=== PATIENT | male | born 1945 | race Caucasian/White ===

== ENCOUNTER 2016-12-16 11:32 | Day surgery (SDC) | payer MEDICARE ==
[2016-12-16] MEDS ORDERED: LIDOCAINE 2% MDV (20MG/ML) 20ML VIAL IV ONE (14:00)
[2016-12-16] MEDS ORDERED: MIDAZOLAM HCL 2MG/2ML VIAL IV ONE (14:00)
[2016-12-16] MEDS ORDERED: PROPOFOL 10 MG/ML VIAL IV ONE (14:00)
== END 2016-12-16 13:05 | disposition home or self-care (01) ==
LOC: HOP 11:32
PROVIDERS: ATTEND Internal Medicine Gastroenterology
DX: D12.2 Benign neoplasm of ascending colon (principal); D12.3 Benign neoplasm of transverse colon; I10 Essential (primary) hypertension; E78.00 Pure hypercholesterolemia, unspecified

== ENCOUNTER 2017-01-13 09:56 | Day surgery (SDC) | payer MEDICARE ==
--- NOTE | 2016-12-17 15:51 | Operative Note ---
DATE OF SURGERY: 12/16/2016 REFERRING PROVIDER: Carlos Simpson DO PREOPERATIVE DIAGNOSIS: Hemoccult-positive stool. POSTOPERATIVE DIAGNOSIS: Includes ascending and transverse colon polyps status post cold forceps removal. Otherwise normal exam. OPERATION: COLONOSCOPY with cold forceps polypectomy x 2. Preparation Quality: Good. Estimated Blood Loss: Minimal. Samples Obtained: Include ascending and transverse polyps. PROCEDURE: After informed consent was obtained, the patient was placed in the left lateral decubitus position in the endoscopy suite, sedated and monitored by the Department of Anesthesia. Digital rectal exam was unremarkable. A well-lubricated PCF-180 colonoscope was inserted into the rectum and advanced to the cecum. The preparation quality was good. The cecum, ileocecal valve and appendiceal orifice were unremarkable. The ileocecal valve itself was cannulated, revealing a normal appearing distal terminal ileum. The ascending colon revealed a diminutive polyp removed with a cold forceps. The transverse colon also revealed a diminutive polyp removed with a cold forceps. The remainder of the ascending colon, transverse colon, descending colon, sigmoid colon, and rectum are unremarkable. The rectum was unremarkable in forward and in J-turn views. The endoscope was straightened, the rectal ampulla deflated and the endoscope was removed. RECOMMENDATIONS: Will await results of tissue histology, but suspect the patient will require repeat exam in 5 years. In addition, I could not appreciate any lesion that would readily explain a heme-positive result, and therefore the patient will be scheduled for an upper endoscopy. As always, thank you for allowing me to participate in the health care of your patients. Corey Barriga DO CC: Carlos Simpson DO [facility]
[2017-01-13] MEDS ORDERED: FENTANYL PF 100MCG/2ML VIAL IV ONE (14:00)
[2017-01-13] MEDS ORDERED: LIDOCAINE 2% MDV (20MG/ML) 20ML VIAL IV ONE (14:00)
[2017-01-13] MEDS ORDERED: PROPOFOL 10 MG/ML VIAL IV ONE (14:00)
--- NOTE | 2017-01-17 07:20 | Operative Note ---
DATE OF SURGERY: OPERATION: ESOPHAGOGASTRODUODENOSCOPY with biopsy. PREOPERATIVE DIAGNOSIS: Hemoccult-positive stools of unclear origin. POSTOPERATIVE DIAGNOSIS: GERD, rule out short-segment Wiley's. PROCEDURE: After informed consent was obtained from the patient, he was placed in the left lateral decubitus position in the endoscopy suite, sedated and monitored by the department of anesthesia. A well-lubricated SXK108 gastroscope was placed in the posterior oropharynx and under direct visualization passed to the proximal esophagus. The endoscope was advanced through the proximal, mid, and distal esophagus. The GE junction was slightly irregular. No ulcers, erosions, strictures, varices, or mass lesions were seen. The gastric body and antrum were inspected and revealed no abnormalities. The pylorus, duodenal bulb, and sweep were unremarkable. J-turn views of the proximal stomach revealed some bilious secretions but these were rinsed and aspirated. No underlying abnormalities were readily identified. No bleeding lesions were noted. The endoscope was straightened. The irregular Z line was biopsied multiple times. No excessive bleeding was noted. The endoscope was removed from the patient with no new findings noted. RECOMMENDATIONS: At this point it is unclear the source of his heme positivity but the we will await the results of the GE junction biopsies. In particular, question whether there could be a short-segment Wiley's issue. As always, thank you for allowing me to participate in the healthcare of your patients. Corey Barriga DO CC: Dr. Calvin TRUJILLO
== END 2017-01-13 12:35 | disposition home or self-care (01) ==
LOC: HOP 09:56
PROVIDERS: ATTEND Internal Medicine Gastroenterology
DX: K21.9 Gastro-esophageal reflux disease without esophagitis (principal); K31.89 Other diseases of stomach and duodenum; E78.00 Pure hypercholesterolemia, unspecified; I10 Essential (primary) hypertension
CPT/HCPCS: 43239; 00740; J3010

== ENCOUNTER 2018-09-05 12:38 | Day surgery (SDC) | payer MEDICARE ==
[~2018-09-05 12:38] MED LIST: ACETAMINOPHEN 1,000 MG/100 ML BTL IV ONE; CEFAZOLIN 2 Gram 2 GM/50 ML BAG IVPB ONE
[2018-09-05] MEDS ORDERED: ONDANSETRON HCL IV 4 MG/2 ML VIAL IVP ONE (12:39)
[2018-09-05] MEDS ORDERED: GLYCOPYRROLATE 0.2 MG/ML ML IV ONE (12:39)
[2018-09-05] MEDS ORDERED: NALOXONE 0.4 MG/1 ML VIAL IVP ONE (12:39)
[2018-09-05] MEDS ORDERED: LIDOCAINE 2% MDV (20MG/ML) 20ML VIAL IV ONE (12:39)
[2018-09-05] MEDS ORDERED: PROPOFOL 10 MG/ML VIAL IV ONE (12:39)
[2018-09-05] MEDS ORDERED: SEVOFLURANE 250 ML INH ONE (12:39)
[2018-09-05] MEDS ORDERED: FENTANYL PF 100MCG/2ML VIAL IV ONE (12:39)
--- NOTE | 2018-09-06 09:41 | Operative Note ---
DATE OF SURGERY: 09/05/2018 PREOPERATIVE DIAGNOSIS: Bladder cancer. POSTOPERATIVE DIAGNOSIS: Bladder cancer. OPERATION: Cystoscopy, transurethral resection of the bladder tumor. Anesthesia: General. Surgeon: Jose Angel Arroyo MD Chair Pad Maker: None. Indications: A 73-year-old male with a history of known bladder cancer who was found to have some recurrent tumor on recent office cystoscopy. As such, he presents for further investigation and management today. PROCEDURE: Preop informed consent was obtained. Antibiotics were given. Sedation was administered. The patient was brought to the cystoscopy suite, given LMA anesthetic, carefully placed in lithotomy position with genitalia prepped and draped sterilely. Cystoscopy was performed. The urethra appears unremarkable. The prostate appears rather small and minimally obstructive. The bladder was entered and inspected carefully. There is a diverticulum at the left posterior wall. There are several small papillary tumors seen in the middle of the trigone and off to the right side of the trigone as well. The tumors are small. Using the resectoscope, the larger papillary tumor was easily removed, passed off the field for pathology analysis, and the remaining smaller tumors and the tumor resection bed were carefully cauterized with the resectoscope to obtain excellent hemostasis and tumor destruction. There was no evidence of any injury to either ureter or any evidence of bladder perforation. The bladder was then irrigated out several times. There was no bleeding. The scope was removed. The patient was awakened and transferred to recovery in stable condition. PLAN: The patient will be following up in the [facility] on 09/21/2018 to review pathology results. CC: DO RONNIE Loaiza
== END 2018-09-05 15:25 | disposition home or self-care (01) ==
LOC: SUR 12:38
PROVIDERS: ATTEND Urology
DX: C67.0 Malignant neoplasm of trigone of bladder (principal); I10 Essential (primary) hypertension; E78.00 Pure hypercholesterolemia, unspecified
CPT/HCPCS: J2310; J2405

== ENCOUNTER 2019-06-20 21:44 | Observation (INO) | payer MEDICARE ==
[2019-06-20 22:10] LABS: BASO % 0.4 % (0-6); GRAN % 69.8 % (47-80); HEMATOCRIT 40.4 % (42.0-52.0); HEMOGLOBIN 13.9 gm/dl (14.0-18.0); LYMPH % 25.4 % (16-45); MEAN CELL VOLUME 84.2 fl (81-97); MEAN CORPUSCULAR HGB CONC 34.4 g/dl (32-36); MEAN PLATELET VOLUME 9.7 fl (7.4-10.4); MONO % 4.4 % (0-9); PLATELET COUNT 123 K/uL (130-400); RED CELL DISTRIBUTION WIDTH 13.5 % (11.5-14.5); WHITE BLOOD COUNT W/O DIFF 2.7 K/uL (4.2-12.2)
[2019-06-20 22:11] LABS: MEAN CORPUSCULAR HEMOGLOBIN 28.9 pg (27-33)
--- NOTE | 2019-06-20 22:17 | Emergency Department Record ---
History of Present Illness - General Chief Complaint: Fever Stated Complaint: SEIZURE Time Seen by Provider: 06/20/19 22:14 Source: Patient Mode of Arrival: Ambulatory Limitations: No limitations - History of Present Illness Initial Comments: pt came in w severe rigors and 103.2 temp without other symptoms. he has been being treated for cellulitis on his abdomen. he has a hx of melanoma but is not surrently on chemo MD Complaint: Fever, Weakness Onset/Timin -: Hour(s) Maximum Temperature: 103.2 F Temperature Source: Oral Associated Symptoms: Chills, Rigors - Related Data Allergies Allergy/AdvReac Type Severity Reaction Status Date / Time No Known Drug Allergies Allergy Unverified 04/27/18 11:47 Travel Screening - Travel/Exposure Within Last 30 Days Have you traveled within the last 30 days?: No - Travel Symptoms Symptom Screening: Fever (GT 100.4) Review of Systems Reviewed: No additional complaints except as noted below Constitutional: Reports: As per HPI, Chills, Fever, Weakness. Denies: Malaise, Night sweats, Weight change Eyes: Reports: As per HPI. Denies: Eye discharge, Eye pain, Photophobia, Vision change ENT: Reports: As per HPI. Denies: Congestion, Dental pain, Ear pain, Epistaxis, Hearing loss, Throat pain Respiratory: Reports: As per HPI. Denies: Cough, Dyspnea, Hemoptysis, Stridor, Wheezes Cardiovascular: Reports: As per HPI. Denies: Arrhythmia, Chest pain, Dyspnea on exertion, Edema, Murmurs, Orthopnea, Palpitations, Paroxysmal nocturnal dyspnea, Rheumatic Fever, Syncope Endocrine: Reports: As per HPI. Denies: Fatigue, Heat or cold intolerance, Polydipsia, Polyuria Gastrointestinal: Reports: As per HPI. Denies: Abdominal pain, Constipation, Diarrhea, Hematemesis, Hematochezia, Melena, Nausea, Vomiting Genitourinary: Reports: As per HPI. Denies: Dysuria, Frequency, Hematuria, Incontinence, Retention, Testicular pain, Testicular mass, Urgency Musculoskeletal: Reports: As per HPI. Denies: Arthralgia, Back pain, Gout, Joint swelling, Myalgia, Neck pain Skin: Reports: As per HPI. Denies: Bruising, Change in color, Change in hair/nails, Lesions, Pruritus, Rash Neurological: Reports: As per HPI. Denies: Abnormal gait, Confusion, Headache, Numbness, Paresthesias, Seizure, Tingling, Tremors, Vertigo, Weakness Psychiatric: Reports: As per HPI. Denies: Anxiety, Auditory hallucinations, Depression, Homicidal thoughts, Suicidal thoughts, Visual hallucinations Hematological/Lymphatic: Reports: As per HPI. Denies: Anemia, Blood Clots, Easy bleeding, Easy bruising, Swollen glands Past Medical History - SOCIAL HISTORY Smoking Status: Former smoker Alcohol Use: Occasional Drug Use: None - RESPIRATORY Hx Respiratory Disorders: Yes - CARDIOVASCULAR Hx Cardio Disorders: Yes Hx Heart Attack: Yes (mild silent showed up in EKG) Hx Hypertension: Yes (on meds good control) Hx Irregular Heartbeat: Yes (bradycardic) Comment:: high cholesterol - NEURO Hx Neuro Disorders: No - GI Hx GI Disorders: Yes Hx Reflux: Yes - Hx Genitourinary Disorders: Yes Hx Bladder Problem: Yes (cancer) - ENDOCRINE Hx Endocrine Disorders: No - MUSCULOSKELETAL Hx Musculoskeletal Disorders: Yes Hx Arthritis: Yes - PSYCH Hx Psych Problems: No - HEMATOLOGY/ONCOLOGY Hx Hematology/Oncology Disorders: Yes Hx Cancer: Yes (bladder & melanoma) Hx Chemotherapy: No Hx Radiation Therapy: No Family Medical History Any Significant Family History?: Yes Hx Heart Disease: Mother, Brother/Sister Physical Exam - General General Appearance: Alert, Oriented x3, Cooperative, Moderate distress - Head Head exam: Normal inspection - Eye Eye exam: Normal appearance, PERRL, EOMI Pupils: Normal accommodation - ENT ENT exam: Normal exam, Mucous membranes moist, Normal external ear exam, Normal orophraynx Ear exam: Normal external inspection. negative: External canal tenderness Nasal Exam: Normal inspection. negative: Discharge, Sinus tenderness Mouth exam: Normal external inspection, Tongue normal Teeth exam: Normal inspection. negative: Dental caries Throat exam: Normal inspection. negative: Tonsillar erythema, Tonsillar exudate - Neck Neck exam: Normal inspection, Full ROM. negative: Tenderness - Respiratory Respiratory exam: Normal lung sounds bilaterally. negative: Respiratory distress - Cardiovascular Cardiovascular Exam: Regular rate, Normal rhythm, Normal heart sounds - GI/Abdominal GI/Abdominal exam: Soft, Normal bowel sounds, Tenderness - Rectal Rectal exam: Deferred - exam: Deferred - Extremities Extremities exam: Normal inspection, Full ROM, Normal capillary refill. negative: Tenderness - Back Back exam: Reports: Normal inspection, Full ROM. Denies: Muscle spasm, Rash noted, Tenderness - Neurological Neurological exam: Alert, CN II-XII intact, Normal gait, Oriented X3 - Psychiatric Psychiatric exam: Normal affect, Normal mood - Skin Skin exam: Dry, Erythema, Intact, Normal color, Rash, Warm Type of lesion: Rash Distribution of rash: Abdomen Description of rash: Confluent, Erythematous, Vesicular Course Vital Signs 06/20/19 21:58 Temperature 103.2 F H Pulse Rate 98 H Respiratory 22 Rate Blood Pressure 212/88 Pulse Ox 98 - Reevaluation(s) Reevaluation #1: 06/21/19 01:11 pt feels better. temp is down. ct shows mild colitis. cxr neg. wbcs are low. not a clear etiolgy of hyperpyrexia and rigors. pt does have cellulitis on abdomen Medical Decision Making - Lab Data Result diagrams: 06/20/19 20:10 06/20/19 20:10 Lab Results 06/20/19 06/20/19 Range/Units 20:10 20:10 WBC 2.7 L (4.2-12.2) K/uL RBC 4.80 (4.40-5.70) M/uL Hgb 13.9 L (14.0-18.0) gm/dl Hct 40.4 L (42.0-52.0) % MCV 84.2 (81-97) fl MCH 28.9 (27-33) pg MCHC 34.4 (32-36) g/dl RDW 13.5 (11.5-14.5) % Plt Count 123 L (130-400) K/uL MPV 9.7 (7.4-10.4) fl Gran % 69.8 (47-80) % Lymphocytes % 25.4 (16-45) % Monocytes % 4.4 (0-9) % Eosinophils % 0.0 (0-6) % Basophils % 0.4 (0-6) % Absolute Neutrophils 1.90 Sodium Cancelled Potassium Cancelled Chloride Cancelled Carbon Dioxide Cancelled Anion Gap Cancelled BUN Cancelled Creatinine Cancelled Estimated GFR Cancelled Random Glucose Cancelled Calcium Cancelled Total Bilirubin Cancelled AST Cancelled ALT Cancelled Alkaline Phosphatase Cancelled Total Protein Cancelled Albumin Cancelled Globulin Cancelled Albumin/Globulin Ratio Cancelled Disposition Disposition: Admit Clinical Impression: Hyperpyrexia Leukopenia Qualifiers: Leukopenia type: unspecified Qualified Code(s): D72.819 - Decreased white blood cell count, unspecified Disposition: Still a Patient at [facility] Decision to Admit: Admit from ER Decision to Admit Date: 06/21/19 Decision to Admit Time: 01:05 Forms: Patient Portal Access Quality - Quality Measures Quality Measures: N/A - Blood Pressure Screening Does Patient Have Any of the Following: Active Dx of HTN Blood Pressure Classification: Pre-Hypertensive BP Reading Systolic Measurement: 212 Diastolic Measurement: 88 Screening for High Blood Pressure: Patient Exclusion, Hx of HTN [[id number]]
[2019-06-20 22:21] LABS: BLOOD UREA NITROGEN 24 mg/dL (8-23); CREATININE 1.1 mg/dL (0.7-1.2); EST GLOMERULAR FILTRATION RATE > 60 mL/min
[2019-06-20 22:22] LABS: TOTAL PROTEIN 7.2 g/dL (6.6-8.7)
[2019-06-20] MEDS ORDERED: 0.9 % SODIUM CHLORIDE 1,000 ML BAG IV ONE (22:23)
[2019-06-20 22:24] LABS: GLUCOSE,RANDOM 132 mg/dL (74-109)
[2019-06-20 22:26] LABS: ALB/GLOB RATIO 1.8 (1.1-1.8); ALBUMIN 4.6 g/dL (4.0-5.0); ALT/SGPT 30 U/L (<41)
[2019-06-20 22:27] LABS: ALKALINE PHOSPHATASE 84 U/L (40-129); AST/SGOT 37 U/L (10.0-50.0)
[2019-06-20 22:40] LABS: URINE APPEARANCE CLEAR; URINE BILIRUBIN NEGATIVE (NEGATIVE); URINE BLOOD SMALL (NEGATIVE); URINE COLOR YELLOW; URINE GLUCOSE (UA) NEGATIVE (NEGATIVE); URINE KETONE NEGATIVE (NEGATIVE); URINE LEUKOCYTE ESTERASE NEGATIVE (NEGATIVE); URINE NITRITE NEGATIVE (NEGATIVE); URINE PROTEIN NEGATIVE (NEGATIVE); URINE UROBILINOGEN 0.2 E.U./dL (0.20 - 1.00)
[2019-06-20] MEDS ORDERED: ONDANSETRON HCL IV 4 MG/2 ML VIAL IVP ONE (22:41)
[2019-06-20] MEDS ORDERED: ACETAMINOPHEN 1,000 MG/100 ML BTL IVPB STA (22:44)
[2019-06-20 22:50] LABS: URINE EPITHELIAL CELLS 0 - 2 (FEW); URINE RBC NONE SEEN (NONE SEEN); URINE WBC NONE SEEN (0-2/hpf)
[2019-06-20 22:52] LABS: INFLUENZA A NEGATIVE (NEGATIVE); INFLUENZA B NEGATIVE (NEGATIVE)
[2019-06-21] MEDS ORDERED: CEFTRIAXONE 1GM/50ML BAG 1 GM/50 ML BAG IVPB ONE (00:53)
[2019-06-21] MEDS ORDERED: AL HYDROX/MAG HYDROX 30ML UD PO PRN (01:45)
[2019-06-21] MEDS: ACETAMINOPHEN 500 MG TABLET PO PRN ×2 (05:44→18:10)
[2019-06-21 07:47] LABS: ABSOLUTE NEUTROPHIL COUNT 3.25; HEMATOCRIT 37.3 % (42.0-52.0); HEMOGLOBIN 12.6 gm/dl (14.0-18.0); MEAN CELL VOLUME 85.2 fl (81-97); MEAN CORPUSCULAR HGB CONC 33.8 g/dl (32-36); MEAN PLATELET VOLUME 9.5 fl (7.4-10.4); PLATELET COUNT 105 K/uL (130-400); RED BLOOD COUNT 4.38 M/uL (4.40-5.70); RED CELL DISTRIBUTION WIDTH 13.5 % (11.5-14.5); WHITE BLOOD COUNT W/O DIFF 3.5 K/uL (4.2-12.2)
--- NOTE | 2019-06-21 07:47 | History & Physical ---
History of Present Illness - Date of Service Date of Service for History & Physical: 06/21/19 - History of Present Illness Admitting Diagnosis: hyperpyrexia, leukopenia, cellulitis History of Present Illness: Ann Rahman is a 74 y.o. M who presented to the [facility] ED on 06/20/19 with severe rigors and a temp of 103.2. No other symptoms noted in the ED. Pt had seen his PCP (Dr. Simpson) earlier that day d/t fever and chills that had started in the morning. Was started on an antibiotic and a "salve" which he nor know the name of, for an open area/rash to the right side of the abdomen that pt reports had been present for approximately 1 week. Pt reports that his PCP thought it may be shingles but gave him an antibiotic d/t fever and chills. Reports that he took 1 antibiotic pill and was feeling significantly worse so he came to the ED. Does have hx of shingles outbreak to forehead. He reports PMHx of skin ca on face, melanoma, bladder cancer, GERD, bradycardia, high cholesterol and questionable NV PCP: Dr. Carlos Simpson Urology: Dr. Arroyo ER Course -Flu Swab Neg -CXR: No acute process -Abdomen CT: no acute process -Neutrophils 90, WBC 2.5, Hgb 13.9 -Culture of wound to ABD, results pending -Blood cultures obtained, results pending 06/21/19 0910 Vitals: T 99.3, HR 94, BP 120/58, HR 16, SpO2 95 on RA Staff reported that early this morning, pt had expressed desire to go home and that through the night, he did not exhibit any rigors or temp. However, at approximately 0845, pt was found to be rigorous with low grade fever. On evaluation, pt was sitting up on edge of bed, with moderate rigors. at bedside. A&Ox3. Pt and both expressed concerned after return of rigors and temp and were agreeable with staying for further observation. Denied pain and shortness of breath. Reports that he has hx of bladder CA and did undergo a "laser treatment" approximately [address] Arroyo to remove the cancer. No other significant hx to report as of late. Irregularly shaped red rash with slightly raised papules. Scabbed area to the center of rash. Travel Screening - Travel/Exposure Within Last 30 Days Have you traveled within the last 30 days?: No - Travel/Exposure Within Last Year Have you traveled outside the [place] in the last year?: No - Additonal Travel Details Have you been exposed to anyone with a communicable illness?: No - Travel Symptoms Symptom Screening: Fever (Subjective) Review of Systems Reviewed: No additional complaints except as noted below Constitutional: Reports: As per HPI, Chills, Fever, Weakness. Denies: Malaise, Night sweats, Weight change Eyes: Reports: As per HPI. Denies: Eye discharge, Eye pain, Photophobia, Vision change ENT: Reports: As per HPI. Denies: Congestion, Dental pain, Ear pain, Epistaxis, Hearing loss, Throat pain Respiratory: Reports: As per HPI. Denies: Cough, Dyspnea, Hemoptysis, Stridor, Wheezes Cardiovascular: Reports: As per HPI. Denies: Arrhythmia, Chest pain, Dyspnea on exertion, Edema, Murmurs, Orthopnea, Palpitations, Paroxysmal nocturnal dyspnea, Rheumatic Fever, Syncope Endocrine: Reports: As per HPI. Denies: Fatigue, Heat or cold intolerance, Poly dipsia, Polyuria Gastrointestinal: Reports: As per HPI. Denies: Abdominal pain, Constipation, Diarrhea, Hematemesis, Hematochezia, Melena, Nausea, Vomiting Genitourinary: Reports: As per HPI. Denies: Dysuria, Frequency, Hematuria, Incontinence, Retention, Testicular pain, Testicular mass, Urgency Musculoskeletal: Reports: As per HPI. Denies: Arthralgia, Back pain, Gout, Joint swelling, Myalgia, Neck pain Skin: Reports: As per HPI, Rash (right side of abdomen, see HPI). Denies: Bruising, Change in color, Change in hair/nails, Lesions, Pruritus Neurological: Reports: As per HPI. Denies: Abnormal gait, Confusion, Headache, Numbness, Paresthesias, Seizure, Tingling, Tremors, Vertigo, Weakness Psychiatric: Reports: As per HPI. Denies: Anxiety, Auditory hallucinations, Depression, Homicidal thoughts, Suicidal thoughts, Visual hallucinations Hematological/Lymphatic: Reports: As per HPI. Denies: Anemia, Blood Clots, Easy bleeding, Easy bruising, Swollen glands Past Medical History - SOCIAL HISTORY Smoking Status: Former smoker Alcohol Use: Occasional Drug Use: None - RESPIRATORY Hx Respiratory Disorders: Yes - CARDIOVASCULAR Hx Cardio Disorders: Yes Hx Heart Attack: Yes (mild silent showed up in EKG) Hx Hypertension: Yes (on meds good control) Hx Irregular Heartbeat: Yes (bradycardic) Comment:: high cholesterol - NEURO Hx Neuro Disorders: No - GI Hx GI Disorders: Yes Hx Reflux: Yes - Hx Genitourinary Disorders: Yes Hx Bladder Problem: Yes (cancer) - ENDOCRINE Hx Endocrine Disorders: No - MUSCULOSKELETAL Hx Musculoskeletal Disorders: Yes Hx Arthritis: Yes - PSYCH Hx Psych Problems: No - HEMATOLOGY/ONCOLOGY Hx Hematology/Oncology Disorders: Yes Hx Cancer: Yes (bladder & melanoma) Hx Chemotherapy: No Hx Radiation Therapy: No Family Medical History Any Significant Family History?: Yes Hx Heart Disease: Mother, Brother/Sister H&P Meds/Allergies - Allergies Allergies: Allergies Allergy/AdvReac Type Severity Reaction Status Date / Time No Known Drug Allergies Allergy Unverified 04/27/18 11:47 - Home Medications Home Medications Medication Instructions Recorded Confirmed Last Taken Amlodipine Besylate [Norvasc] 10 mg PO DAILY 06/21/19 06/21/19 Unknown Atorvastatin Calcium 40 mg PO QHS 06/21/19 06/21/19 Unknown - Active Medications Active Medications: Current Medications Acetaminophen (Tylenol 500mg Tab) 1,000 mg PO Q6H PRN PRN Reason: PAIN - MILD(1-4)/FEVER Last Admin: 06/21/19 05:44 Dose: 1,000 mg Documented by: Al Hydroxide/Mg Hydroxide (Maalox) 30 ml PO Q4H PRN PRN Reason: ABDOMINAL PAIN Amlodipine Besylate (Norvasc) 10 mg PO DAILY [facility] Aspirin (Ecotrin (Ec)) 81 mg PO DAILY [facility] Atorvastatin Calcium (Lipitor) 10 mg PO DAILY [facility] CEFTRIAXONE 1GM/50ML BAG (Ceftriaxone 1 Gm-D5w Bag) 1 gm in 50 mls @ 100 mls/hr IVPB Q12H [facility] Losartan Potassium (Cozaar) 50 mg PO DAILY [facility]IAN Physical Exam - Vital Signs Vital Signs: Vital Signs - Last 24 Hrs Temp Pulse Pulse Resp BP BP BP 06/21/19 02:30 56 L 16 06/21/19 01:45 97.9 F 56 L 16 122/54 06/21/19 01:33 98.3 F 64 18 119/59 06/20/19 23:50 99.6 F 68 20 138/81 06/20/19 23:01 73 18 129/64 06/20/19 21:58 103.2 F H 98 H 22 212/88 Pulse Ox 06/21/19 02:30 06/21/19 01:45 98 06/21/19 01:33 95 06/20/19 23:50 97 06/20/19 23:01 94 L 06/20/19 21:58 98 - General General Appearance: Alert, Oriented x3, Cooperative, Moderate distress Limitations: No limitations - Head Head exam: Normal inspection - Eye Eye exam: Normal appearance, PERRL, EOMI Pupils: Normal accommodation - ENT ENT exam: Normal exam, Mucous membranes moist, Normal external ear exam, Normal orophraynx Ear exam: Normal external inspection. negative: External canal tenderness Nasal Exam: Normal inspection. negative: Discharge, Sinus tenderness Mouth exam: Normal external inspection, Tongue normal Teeth exam: Normal inspection. negative: Dental caries Throat exam: Normal inspection. negative: Tonsillar erythema, Tonsillar exudate - Neck Neck exam: Normal inspection, Full ROM. negative: Tenderness - Respiratory Respiratory exam: Normal lung sounds bilaterally. negative: Respiratory distress - Cardiovascular Cardiovascular Exam: Regular rate, Normal rhythm, Normal heart sounds - GI/Abdominal GI/Abdominal exam: Soft, Normal bowel sounds, Tenderness - Rectal Rectal exam: Deferred - exam: Deferred - Extremities Extremities exam: Normal inspection, Full ROM, Normal capillary refill. negative: Tenderness - Back Back exam: Reports: Normal inspection, Full ROM. Denies: Muscle spasm, Rash noted, Tenderness - Neurological Neurological exam: Alert, CN II-XII intact, Normal gait, Oriented X3, Other (rigors) - Psychiatric Psychiatric exam: Normal affect, Normal mood - Skin Skin exam: Dry, Intact, Normal color, Rash (see HPI), Warm Type of lesion: Rash (see HPI) Distribution of rash: Abdomen Description of rash: Confluent, Erythematous, Vesicular Results - Labs Result Diagrams: 06/21/19 07:40 06/20/19 20:10 Labs Last 24 Hours: Laboratory Results - last 24 hr 06/20/19 06/20/19 06/20/19 20:10 20:10 20:10 WBC 2.7 L RBC 4.80 Hgb 13.9 L Hct 40.4 L MCV 84.2 MCH 28.9 MCHC 34.4 RDW 13.5 Plt Count 123 L MPV 9.7 Gran % 69.8 Lymphocytes % 25.4 Monocytes % 4.4 Eosinophils % 0.0 Basophils % 0.4 Absolute Neutrophils 1.90 ESR 13 Sodium Cancelled Potassium Cancelled Chloride Cancelled Carbon Dioxide Cancelled Anion Gap Cancelled BUN Cancelled Creatinine Cancelled Estimated GFR Cancelled Random Glucose Cancelled Lactic Acid 2.5 H Calcium Cancelled Total Bilirubin Cancelled AST Cancelled ALT Cancelled Alkaline Phosphatase Cancelled Total Protein Cancelled Albumin Cancelled Globulin Cancelled Albumin/Globulin Ratio Cancelled Urine Color Urine Appearance Urine pH Ur Specific Outlook Urine Protein Urine Glucose (UA) Urine Ketones Urine Blood Urine Nitrite Urine Bilirubin Urine Urobilinogen Ur Leukocyte Esterase Urine RBC Urine WBC Ur Epithelial Cells Influenza Type A Ag Influenza Type B Ag 06/20/19 06/20/19 06/20/19 20:10 22:24 22:38 WBC RBC Hgb Hct MCV MCH MCHC RDW Plt Count MPV Gran % Lymphocytes % Monocytes % Eosinophils % Basophils % Absolute Neutrophils ESR Sodium 135 L Potassium 4.2 Chloride 97 L Carbon Dioxide 24.0 Anion Gap 14.0 BUN 24 H Creatinine 1.1 Estimated GFR > 60 Random Glucose 132 H Lactic Acid Calcium 9.1 Total Bilirubin 1.30 H AST 37 ALT 30 Alkaline Phosphatase 84 Total Protein 7.2 Albumin 4.6 Globulin 2.6 Albumin/Globulin Ratio 1.8 Urine Color Yellow Urine Appearance Clear Urine pH 6.0 Ur Specific Outlook 1.025 Urine Protein Negative Urine Glucose (UA) Negative Urine Ketones Negative Urine Blood Small H Urine Nitrite Negative Urine Bilirubin Negative Urine Urobilinogen 0.2 Ur Leukocyte Esterase Negative Urine RBC None seen Urine WBC None seen Ur Epithelial Cells 0 - 2 Influenza Type A Ag Negative Influenza Type B Ag Negative VTE H&P Assessment - Risk for VTE Risk for VTE: Yes Risk Level: Moderate Risk Assessment Date: 06/21/19 Risk Assessment Time: 09:00 VTE Orders Placed or Will Be Placed: Yes Plan - Detailed Diagnosis and Plan (1) Hyperpyrexia Current Visit: Yes Status: Acute Base Code: R50.9 - FEVER, UNSPECIFIED Comment: 06/21/19 -Admitted with T 103.2 -Low grade 99.3 this a.m. -No obvious source other than rash with scabbed area to abdomen -Blood Cultures pending -Continue Tylenol and Motrin PRN (2) Rigors Current Visit: Yes Status: Acute Base Code: R68.89 - OTHER GENERAL SYMPTOMS AND SIGNS Comment: 06/21/19 -Elevated Temp ranging from 99.3 to 103.2 -No clear source of infection -Blood cultures pending (3) Rash Current Visit: Yes Status: Acute Base Code: R21 - RASH AND OTHER NONSPECIFIC SKIN ERUPTION Comment: 06/21/19 -Questionable shingles with secondary infection vs. insect bite vs. ? -No vesicles noted, no reports of tingling pain -Rocephin 1gm IV q. 12 hours for possible cellulitis -Wound culture obtained in ED (4) Leukopenia Current Visit: Yes Status: Acute Qualifiers: Leukopenia type: unspecified Qualified Code(s): D72.819 - Decreased white blood cell count, unspecified Base Code: D72.819 - DECREASED WHITE BLOOD CELL COUNT, UNSPECIFIED Comment: 06/21/19 -WBC 2.5 --> 3.5 -Neutrophils 90 -CBC tomorrow (5) Full code status Current Visit: Yes Status: Acute Base Code: Z78.9 - OTHER SPECIFIED HEALTH STATUS Comment: 06/21/19 -Full code this admission (6) DVT prophylaxis Current Visit: Yes Status: Acute Base Code: Z29.9 - ENCOUNTER FOR PROPHYLACTIC MEASURES, UNSPECIFIED Comment: 06/21/19 -Moderate risk d/t age and co-morbidities -Nursing to encourage ambulation
[2019-06-21 07:52] LABS: MEAN CORPUSCULAR HEMOGLOBIN 28.7 pg (27-33)
[2019-06-21 08:12] LABS: PLATELET ESTIMATE DECREASED (NORMAL)
[2019-06-21] MEDS: IBUPROFEN 600 MG TABLET PO PRN ×2 (09:05→20:18)
[2019-06-21] MEDS: LOSARTAN POTASSIUM 25 MG TABLET PO SCH ×2 (09:09→09:22)
[2019-06-21] MEDS: AMLODIPINE BESYLATE 5MG TAB PO SCH ×2 (09:10→09:20)
[2019-06-21] MEDS: ASPIRIN 81 MG TABEC PO SCH ×2 (09:10→09:22)
[2019-06-21] MEDS: 0.9 % SODIUM CHLORIDE 1000ML 1,000 ML IV PRN (10:58)
[2019-06-21] MEDS: CEFTRIAXONE 1GM/50ML BAG 1 GM/50 ML BAG IVPB SCH (12:53)
--- NOTE | 2019-06-21 12:53 | RADIOLOGY REPORT ---
EXAM: CHEST, TWO VIEWS HISTORY: FEVER AND SHAKING. TECHNIQUE: PA and lateral upright views of the chest were obtained. Comparison: 12/27/17. FINDINGS: There are low lung volumes. The heart, mediastinum, and pulmonary vasculature are normal. There are no visible acute infiltrates or effusions. There is no pneumothorax. Degenerative changes are present within the spine and shoulders. There are no acute osseous abnormalities. IMPRESSION: NO ACUTE CHEST PATHOLOGY. JOB NUMBER: [id number] MTDD
--- NOTE | 2019-06-21 13:09 | CT SCAN REPORT ---
EXAM: CT OF THE ABDOMEN AND PELVIS WITHOUT IV CONTRAST HISTORY: THIS IS A 74-YEAR-OLD MALE WITH SUPERFICIAL RIGHT LOWER QUADRANT TOPICAL/SKIN INFECTION TREATED BY PCP, FEVER 103. TECHNIQUE: Axial computed tomography images of the abdomen and pelvis were conducted without IV contrast with coronal and sagittal reconstructions. Comparison: No relevant prior studies available. FINDINGS: LUNGS: The lung bases are clear. LIVER: There is a 2 cm low density lesion within the anterior right hepatic lobe, and 1 cm low density lesion within the left hepatic lobe suggestive of cysts versus hemangiomas. GALLBLADDER AND BILE DUCTS: Normal, no cholelithiasis or ductal dilatation. PANCREAS: Normal, no ductal dilatation or inflammatory changes. SPLEEN: Normal, no marisa splenomegaly. ADRENALS: Normal, no discrete mass. KIDNEYS AND URETERS: There is a 5.9 x 9.2 cm large low density lesion within the anterior cortex of the mid right kidney containing linear calcification along its posterior border with potential soft tissue component. Additional 2.7 cm right renal cystic lesion is present. STOMACH AND BOWEL: Scattered colonic diverticula are present, no evidence of acute diverticulitis. Mild right sided colonic mucosal thickening suggested, no significant inflammatory fat stranding. APPENDIX: The appendix is surgically absent. INTRAPERITONEAL SPACE: No free air or significant ascites. VASCULATURE: No abdominal aortic aneurysm identified, scattered calcified plaque is present to include the visualized coronary arteries as well as marked involving the proximal left renal artery. LYMPH NODES: No suspicious enlarged adenopathy identified. URINARY BLADDER: Unremarkable. REPRODUCTIVE: Unremarkable. BONES AND JOINTS: There is severe degenerative changes of the lower lumbar spine with resultant severe neural foraminal narrowing notably at L3-L4. No acute displaced fracture. SOFT TISSUES: There is mild skin thickening with subtle inflammatory fat stranding involving the anterolateral right lower skin surface without discrete abscess or significant inflammatory changes. Small left greater than right fat containing inguinal hernias are present. IMPRESSION: 1. MILD DIFFUSE RIGHT LOWER QUADRANT SKIN THICKENING WITH MILD INFLAMMATORY FAT STRANDING, NO ABSCESS. 2. 9.2 CM ANTERIOR RIGHT RENAL CYSTIC MASS WITH POSTERIOR CURVILINEAR CALCIFICATIONS, POTENTIAL SOFT TISSUE COMPONENT. RECOMMEND NONEMERGENT CT RENAL MASS PROTOCOL FOR FURTHER CHARACTERIZATION. 3. MILD RIGHT COLONIC MUCOSAL THICKENING MAY REPRESENT COMPONENT OF MILD COLITIS. COLONIC DIVERTICULOSIS, NO EVIDENCE OF ACUTE DIVERTICULITIS. JOB NUMBER: [id number] [facility]
[2019-06-21] MEDS ORDERED: ATORVASTATIN 20 MG TABLET PO SCH (22:00)
[2019-06-22] MEDS: CEFTRIAXONE 1GM/50ML BAG 1 GM/50 ML BAG IVPB SCH (01:22)
[2019-06-22] MEDS: ACETAMINOPHEN 500 MG TABLET PO PRN (01:22)
[2019-06-22] MEDS: 0.9 % SODIUM CHLORIDE 1000ML 1,000 ML IV PRN (01:22)
[2019-06-22 07:02] LABS: ABSOLUTE NEUTROPHIL COUNT 1.91; BASO % 0.8 % (0-6); EOS % 1.2 % (0-6); HEMATOCRIT 38.4 % (42.0-52.0); HEMOGLOBIN 12.6 gm/dl (14.0-18.0); LYMPH % 12.4 % (16-45); MEAN CELL VOLUME 86.3 fl (81-97); MEAN CORPUSCULAR HEMOGLOBIN 28.3 pg (27-33); MEAN CORPUSCULAR HGB CONC 32.8 g/dl (32-36); MEAN PLATELET VOLUME 10.5 fl (7.4-10.4); MONO % 9.6 % (0-9); PLATELET COUNT 100 K/uL (130-400); RED BLOOD COUNT 4.45 M/uL (4.40-5.70); RED CELL DISTRIBUTION WIDTH 13.7 % (11.5-14.5); WHITE BLOOD COUNT W/O DIFF 2.5 K/uL (4.2-12.2)
[2019-06-22 07:19] LABS: ALB/GLOB RATIO 1.5 (1.1-1.8); ALBUMIN 3.5 g/dL (4.0-5.0); ALKALINE PHOSPHATASE 116 U/L (40-129); ALT/SGPT 86 U/L (<41); AST/SGOT 100 U/L (10.0-50.0); BLOOD UREA NITROGEN 19 mg/dL (8-23); CREATININE 0.9 mg/dL (0.7-1.2); EST GLOMERULAR FILTRATION RATE > 60 mL/min; GLUCOSE,RANDOM 121 mg/dL (74-109); TOTAL PROTEIN 5.8 g/dL (6.6-8.7)
[2019-06-22] MEDS: LOSARTAN POTASSIUM 25 MG TABLET PO SCH (09:48)
[2019-06-22] MEDS: ASPIRIN 81 MG TABEC PO SCH (09:48)
[2019-06-22] MEDS: AMLODIPINE BESYLATE 5MG TAB PO SCH (09:48)
--- NOTE | 2019-06-22 10:15 | Discharge Summary ---
Providers Discharge Summary Date: 06/22/19 Date of admission: 06/21/19 01:43 Attending physician: BARRY ACHARYA Primary care physician: Carlos Simpson D.O. Physical Exam - Vital Signs Vital Signs: Vital Signs - Last 24 Hrs Temp Pulse Resp BP BP Pulse Ox 06/22/19 07:52 60 06/22/19 07:30 97.4 F L 54 L 16 135/66 90 L 06/22/19 06:00 52 L 16 118/61 98 06/22/19 05:30 97.4 F L 06/22/19 01:20 98.9 F 06/21/19 22:44 100.1 F H 56 L 17 113/51 99 06/21/19 20:15 100.8 F H 06/21/19 15:00 97.9 F 53 L 16 113/51 100 06/21/19 11:00 99.3 F 68 20 118/68 - General General Appearance: Alert, Oriented x3, Cooperative, No acute distress Limitations: No limitations - Head Head exam: Normal inspection - Eye Eye exam: Normal appearance, PERRL, EOMI Pupils: Normal accommodation - ENT ENT exam: Normal exam, Mucous membranes moist, Normal external ear exam, Normal orophraynx Ear exam: Normal external inspection. negative: External canal tenderness Nasal Exam: Normal inspection. negative: Discharge, Sinus tenderness Mouth exam: Normal external inspection, Tongue normal Teeth exam: Normal inspection. negative: Dental caries Throat exam: Normal inspection. negative: Tonsillar erythema, Tonsillar exudate - Neck Neck exam: Normal inspection, Full ROM. negative: Tenderness - Respiratory Respiratory exam: Normal lung sounds bilaterally. negative: Respiratory distress - Cardiovascular Cardiovascular Exam: Regular rate, Normal rhythm, Normal heart sounds - GI/Abdominal GI/Abdominal exam: Soft, Normal bowel sounds, Tenderness - Rectal Rectal exam: Deferred - exam: Deferred - Extremities Extremities exam: Normal inspection, Full ROM, Normal capillary refill. negative: Tenderness - Back Back exam: Reports: Normal inspection, Full ROM. Denies: Muscle spasm, Rash noted, Tenderness - Neurological Neurological exam: Alert, CN II-XII intact, Normal gait, Oriented X3 - Psychiatric Psychiatric exam: Normal affect, Normal mood - Skin Skin exam: Dry, Intact, Normal color, Rash (see HPI) Type of lesion: Rash (see HPI) Distribution of rash: Abdomen Description of rash: Confluent, Erythematous Hospitalization - Hospitalization Admission Diagnosis: hyperpyrexia, leukopenia, cellulitis - Problem List/Discharge Diagnosis (1) Hyperpyrexia Status: Acute Base Code: R50.9 - FEVER, UNSPECIFIED Comment: 06/22/19 -Admitted with T 103.2 -Temp today 97.4 -No obvious source other than rash with scabbed area to abdomen -Blood Cultures pending -Recommended to monitor temp and to take Tylenol or Motrin if temp goes above 100 (2) Rigors Status: Acute Base Code: R68.89 - OTHER GENERAL SYMPTOMS AND SIGNS Comment: 06/22/19 -Temp 97.4 -No rigors x 20 hours (approximately) -No clear source of infection -Blood cultures pending (3) Rash Status: Acute Base Code: R21 - RASH AND OTHER NONSPECIFIC SKIN ERUPTION Comment: 06/22/19 -Questionable shingles with secondary infection vs. insect bite vs. ? -No vesicles noted, no reports of tingling pain -Resume Bactrim DS BID until gone (as prescribed by PCP 2 days prior) -Wound culture obtained in ED, pending (4) Leukopenia Status: Acute Discharge Diagnosis: Leukopenia type: unspecified Qualified Code(s): D72.819 - Decreased white blood cell count, unspecified Base Code: D72.819 - DECREASED WHITE BLOOD CELL COUNT, UNSPECIFIED Comment: 06/21/19 -WBC 2.5 --> 3.5 --> -Recommend follow up by PCP if continues (5) Full code status Status: Acute Base Code: Z78.9 - OTHER SPECIFIED HEALTH STATUS Comment: 06/22/19 -Full code this admission (6) DVT prophylaxis Status: Acute Base Code: Z29.9 - ENCOUNTER FOR PROPHYLACTIC MEASURES, UNSPECIFIED Comment: 06/22/19 -Moderate risk d/t age and co-morbidities -Nursing to encourage ambulation - Hospitalization Course Disposition: Home, Self-Care Hospital Course: Ann Rahman is a 74 y.o. M who presented to the [facility] ED on 06/20/19 with severe rigors and a temp of 103.2. No other symptoms noted in the ED. Pt had seen his PCP (Dr. Simpson) earlier that day d/t fever and chills that had started in the morning. Was started on an antibiotic and a "salve" which he nor know the name of, for an open area/rash to the right side of the abdomen that pt reports had been present for approximately 1 week. Pt reports that his PCP thought it may be shingles but gave him an antibiotic d/t fever and chills. Reports that he took 1 antibiotic pill and was feeling significantly worse so he came to the ED. Does have hx of shingles outbreak to forehead. He reports PMHx of skin ca on face, melanoma, bladder cancer, GERD, bradycardia, high cholesterol and questionable LA PCP: Dr. Carlos Simpson Urology: Dr. Arroyo ER Course -Flu Swab Neg -CXR: No acute process -Abdomen CT: no acute process -Neutrophils 90, WBC 2.5, Hgb 13.9 -Culture of wound to ABD, results pending -Blood cultures obtained, results pending 06/21/19 0910 Vitals: T 99.3, HR 94, BP 120/58, HR 16, SpO2 95 on RA Staff reported that early this morning, pt had expressed desire to go home and that through the night, he did not exhibit any rigors or temp. However, at approximately 0845, pt was found to be rigorous with low grade fever. On evaluation, pt was sitting up on edge of bed, with moderate rigors. at bedside. A&Ox3. Pt and both expressed concerned after return of rigors and temp and were agreeable with staying for further observation. Denied pain and shortness of breath. Reports that he has hx of bladder CA and did undergo a "laser treatment" approximately [address] Arroyo to remove the cancer. No other significant hx to report as of late. Irregularly shaped red rash with slightly raised papules. Scabbed area to the center of rash. 06/22/19 Pt sitting up at edge of bed. Appearing well and reported feeling much better than the previous day. No rigors present and pt reported that he hadn't had any x 20 hours. Has been afebrile x 12 hours. When the idea of a possible tick bite was brought up, pt stated that he did not believe it could be r/t a tick but potentially a flea. Stated that he had been digging and scratching at the area since it appeared. brought in medication bottles which showed the pt was started on Bactrim DS BID by PCP on 06/20/19. Procedures: Imaging and X-Rays 06/20/19 22:22 CHEST 2 VIEWS [RAD] Stat 06/20/19 23:54 ABDOMEN/PELVIS WO CONTRAST [CT] Stat Abnormal Labs: Abnormal Lab Results 06/20/19 06/20/19 06/20/19 Range/Units 20:10 20:10 20:10 WBC 2.7 L (4.2-12.2) K/uL RBC (4.40-5.70) M/uL Hgb 13.9 L (14.0-18.0) gm/dl Hct 40.4 L (42.0-52.0) % Plt Count 123 L (130-400) K/uL MPV (7.4-10.4) fl Neutrophils % (47-80) % Band Neutrophils % (0-5) % Lymphocytes % (16-45) % Monocytes % (0-9) % Lymphocytes (16-45) % Sodium 135 L (136-145) mmol/L Chloride 97 L (98-107) mmol/L BUN 24 H (8-23) mg/dL Random Glucose 132 H (74-109) mg/dL Lactic Acid 2.5 H (0.5-2.2) mmol/L Calcium (8.8-10.2) mg/dL Total Bilirubin 1.30 H (0.2-1.0) mg/dL AST (10.0-50.0) U/L ALT (<41) U/L Total Protein (6.6-8.7) g/dL Albumin (4.0-5.0) g/dL Urine Blood (NEGATIVE) 06/20/19 06/21/19 06/22/19 Range/Units 22:38 07:40 06:44 WBC 3.5 L 2.5 L (4.2-12.2) K/uL RBC 4.38 L (4.40-5.70) M/uL Hgb 12.6 L 12.6 L (14.0-18.0) gm/dl Hct 37.3 L 38.4 L (42.0-52.0) % Plt Count 105 L 100 L (130-400) K/uL MPV 10.5 H (7.4-10.4) fl Neutrophils % 90.0 H (47-80) % Band Neutrophils % 7.0 H (0-5) % Lymphocytes % 12.4 L (16-45) % Monocytes % 9.6 H (0-9) % Lymphocytes 2.0 L (16-45) % Sodium (136-145) mmol/L Chloride (98-107) mmol/L BUN (8-23) mg/dL Random Glucose (74-109) mg/dL Lactic Acid (0.5-2.2) mmol/L Calcium (8.8-10.2) mg/dL Total Bilirubin (0.2-1.0) mg/dL AST (10.0-50.0) U/L ALT (<41) U/L Total Protein (6.6-8.7) g/dL Albumin (4.0-5.0) g/dL Urine Blood Small H (NEGATIVE) 06/22/19 Range/Units 06:44 WBC (4.2-12.2) K/uL RBC (4.40-5.70) M/uL Hgb (14.0-18.0) gm/dl Hct (42.0-52.0) % Plt Count (130-400) K/uL MPV (7.4-10.4) fl Neutrophils % (47-80) % Band Neutrophils % (0-5) % Lymphocytes % (16-45) % Monocytes % (0-9) % Lymphocytes (16-45) % Sodium (136-145) mmol/L Chloride (98-107) mmol/L BUN (8-23) mg/dL Random Glucose 121 H (74-109) mg/dL Lactic Acid (0.5-2.2) mmol/L Calcium 8.1 L (8.8-10.2) mg/dL Total Bilirubin (0.2-1.0) mg/dL AST 100 H (10.0-50.0) U/L ALT 86 H (<41) U/L Total Protein 5.8 L (6.6-8.7) g/dL Albumin 3.5 L (4.0-5.0) g/dL Urine Blood (NEGATIVE) Condition at Discharge: (1) Good Discharge Medications - Discharge Medications Home Medications: Ambulatory Orders Aspirin [Aspir 81] 81 mg PO DAILY tab.dr 04/17/18 [Last Taken 06/20/19] Losartan Potassium [Cozaar] 50 mg PO DAILY tab 04/17/18 [Last Taken 06/20/19] [place]-3 Fatty Acids/Fish Oil [Fish Oil 1,000 mg Capsule] 1 cap PO QHS cap 04/17/18 [Last Taken 06/20/19] Amlodipine Besylate [Norvasc] 10 mg PO DAILY 06/21/19 [Last Taken Unknown] Atorvastatin Calcium 40 mg PO QHS 06/21/19 [Last Taken Unknown] Acetaminophen [Tylenol 500Mg Tab] 1,000 mg PO Q6H PRN tablet 06/22/19 [Last Taken Unknown] Ibuprofen [Motrin 600Mg] 600 mg PO Q6H PRN tablet 06/22/19 [Last Taken Unknown] Magnesium Hydroxide/Al Hydrox [Maalox] 30 ml PO Q4H PRN oral.susp 06/22/19 [Last Taken Unknown] Discharge Plan - Discharge Instructions Diet at Discharge: Regular Diet Instructions: Cellulitis (DC) Additional Instructions: Follow up appointment with Dr. Simpson TuesdayJuly 02 at 2:30pm. Continue with Bactrim DS twice a day that was prescribed by Dr. Simpson on 06/21/19 Monitor Temperature at home. If over 100, take Tylenol 1000mg. Do not take more than 4,000mg in a 24 hour period. May alternate with Motrin 600mg q. 8 hours as needed. Quality Measures - Quality Measures Quality Measures: Advance Directives, Documentation of Current Medications in Medical Record, Elder Maltreatment Screen and Follow-Up Plan, Screening for High Blood Pressure and F/U Documented - Current Medications Quality Measure: Measure #130: Documentation of Current Medications Documentation of Current Medications: <Current Medications Documented/Reviewed> [G8427] - Blood Pressure Screening Quality Measure: Screening for High Blood Pressure and Follow-Up Documented Does Patient Have Any of the Following: Active Dx of HTN Systolic Measurement: 135 Diastolic Measurement: 66 Screening for High Blood Pressure: Patient Exclusion, Hx of HTN [G9744] - Advance Directives Quality Measure: Measure #47: Care Plan Advance Directives Established: No Advance Directives Information Provided To Patient: No Advance Directives on File: No Living Will: No Power of Log Chipper Operator: No Advance Care Planning: <Care Plan/Decision Maker Documented; Discussed & Docume nted> [2343F] - Elder Abuse Suspicion Index Screening: Elder Abuse Suspicion Index Screening Rely on people for bathing, dressing, shopping, banking, etc: No Prevented from getting food, clothes, medication, etc: No Made to feel shamed or threatened by someone: No Forced to sign papers or use money against will: No Feel afraid, touched in ways not wanted or hurt physically: No Poor eye contact, withdrawn, malnourished, cuts or bruises: No Screening Result: Negative result EASI Reference Information: Анна COVARRUBIAS, Venkat C, Luís D, Davide Amor.Development and validation of a tool to assist physicians identification of elder abuse: The Elder Abuse Suspicion Index (EASI ). Journal of Elder Abuse and Neglect, 2008; 20 (3): 276-300. - Elder Maltreatment Screen Quality Measures: Elder Maltreatment Screen and Follow-Up Plan Elder Maltreatment Screen: <Negative, No Follow-Up Plan Required> [G1004]
[2019-06-22 16:38] LABS: SPECIMEN TYPE Not specified
== END 2019-06-22 10:40 | disposition home or self-care (01) ==
LOC: ER 21:44 → MEDSURG 06-21 01:43
PROVIDERS: ADMIT Internal Medicine; ATTEND Internal Medicine
DX: D72.819 Decreased white blood cell count, unspecified (principal); L03.311 Cellulitis of abdominal wall; R21 Rash and other nonspecific skin eruption; I10 Essential (primary) hypertension; E78.00 Pure hypercholesterolemia, unspecified; R00.1 Bradycardia, unspecified; C67.9 Malignant neoplasm of bladder, unspecified; K21.9 Gastro-esophageal reflux disease without esophagitis; M19.90 Unspecified osteoarthritis, unspecified site; I25.2 Old myocardial infarction; Z85.820 Personal history of malignant melanoma of skin
CPT/HCPCS: 83605; 85025 ×2; 85651; 80053 ×2; 81001; 87400; 85027; 71046; 74176; G0378 ×2; J2405; J0696 ×2; 96365; 96366; 99217; 99220; 99285; J7030

== ENCOUNTER 2019-10-02 06:03 | Day surgery (SDC) | payer MEDICARE ==
[~2019-10-02 06:03] MED LIST changes: -ACETAMINOPHEN 1,000 MG/100 ML BTL IV ONE; +ACETAMINOPHEN 1,000 MG/100 ML BTL IVPB ONE
[2019-10-02] MEDS ORDERED: PROPOFOL 10 MG/ML VIAL IV ONE (06:04)
[2019-10-02] MEDS ORDERED: MIDAZOLAM HCL 2MG/2ML VIAL IV ONE (06:04)
[2019-10-02] MEDS ORDERED: DEXAMETHASONE 4 MG/ML 1ML VIAL IVP ONE (06:04)
[2019-10-02] MEDS ORDERED: FENTANYL PF 100MCG/2ML VIAL IV ONE (06:04)
[2019-10-02] MEDS ORDERED: DESFLURANE 240 ML BTL INH ONE (06:04)
[2019-10-02] MEDS ORDERED: ONDANSETRON HCL IV 4 MG/2 ML VIAL IVP ONE (06:04)
[2019-10-02] MEDS ORDERED: GLYCOPYRROLATE 0.2 MG/ML ML IV ONE (06:04)
[2019-10-02] MEDS ORDERED: LIDOCAINE 2% MDV (20MG/ML) 20ML VIAL IV ONE (06:04)
[2019-10-02] MEDS ORDERED: RINGERS SOLUTION,LACTATED 1,000 ML IV ONE ×2 (06:30→08:43)
== END 2019-10-02 09:29 | disposition home or self-care (01) ==
LOC: SUR 06:03
PROVIDERS: ATTEND Urology
DX: C67.8 Malignant neoplasm of overlapping sites of bladder (principal); I10 Essential (primary) hypertension; E78.00 Pure hypercholesterolemia, unspecified; I25.2 Old myocardial infarction; K21.9 Gastro-esophageal reflux disease without esophagitis
CPT/HCPCS: J2405; J7120